=== PATIENT | female | born 1970 | race Two or more races ===

== ENCOUNTER 2020-08-20 12:00 | Inpatient (IN) | payer OTHER ==
[~2020-08-20] VITALS: Ht 167.6 cm; Wt 70.8 kg
[2020-08-20] MEDS ORDERED: ZIAC 10/6.25 MG1 TAB PO (16:13)
[2020-08-20] MEDS ORDERED: NORVASC5 MG PO (16:14)
== END 2020-08-24 10:48 | disposition home or self-care (01) | DRG 743 ==
LOC: O/R 08-23 08:49 → OB/GYN 08-23 12:00 → O/R 08-24 10:48
PROVIDERS: ADMIT Obstetrics & Gynecology Gynecologic Oncology; ATTEND Obstetrics & Gynecology Gynecologic Oncology
PROC: 0UT24ZZ Resection of Bilateral Ovaries, Percutaneous Endoscopic Approach (ICD-10-PCS; 2020-08-23)
PROC: 0UT74ZZ Resection of Bilateral Fallopian Tubes, Percutaneous Endoscopic Approach (ICD-10-PCS; 2020-08-23)
PROC: 0UBF4ZX Excision of Cul-de-sac, Percutaneous Endoscopic Approach, Diagnostic (ICD-10-PCS; 2020-08-23)
PROC: 0UT94ZZ Resection of Uterus, Percutaneous Endoscopic Approach (ICD-10-PCS; principal; 2020-08-23 21:30)
DX: N83.291 Other ovarian cyst, right side (principal); N83.292 Other ovarian cyst, left side; N72 Inflammatory disease of cervix uteri; N80.0 Endometriosis of uterus; D26.1 Other benign neoplasm of corpus uteri; Q50.4 Embryonic cyst of fallopian tube